=== PATIENT | male | born 1955 | race Caucasian/White ===

== ENCOUNTER 2017-06-03 05:08 | Emergency (ER) | payer OTHER ==
[~2017-06-03] VITALS: Ht 175.3 cm; Wt 93.9 kg
[2017-06-03] MEDS ORDERED: VITAMIN D1000 UNIT PO (05:24)
[2017-06-03] MEDS ORDERED: LISINOPRIL10 M1 PO (05:24)
--- NOTE | 2017-06-03 05:41 | ED SKIN/ALLERGY COMPLAINT ---
History of Present Illness General Chief Complaint: Facial or Head Injury Stated Complaint: FACIAL SWELLING Source: patient, old records Exam Limitations: no limitations Vital Signs & Intake/Output Vital Signs & Intake/Output Vital Signs Date Time Temp Pulse Resp B/P B/P Pulse O2 O2 Flow FiO2 Mean Ox Delivery Rate 06/03 0726 96.6 64 18 127/71 99 Room Air 06/03 0650 97.0 71 18 140/65 99 Room Air 06/03 0525 98 Room Air 06/03 0515 97.5 87 18 177/90 100 Room Air Allergies Coded Allergies: NO KNOWN ALLERGIES (06/25/16) Reconcile Medications Cholecalciferol (Vitamin D3) (Vitamin D) 1,000 UNIT TABLET 1 TAB PO DAILY ( Reported) Lisinopril 10 MG TABLET 1 TAB PO DAILY HTN (Reported) Triage Note: TRIAGE: PATIENT TO ER FROM HOME REPORTING L SIDE FACIAL SWELLING TONIGHT, NOTICED FIRST AT 0300, INCREASED SINCE. DENIES SOB. TAKING LISINOPRIL 10MG DAILY SINCE 2011. PATIENT REPORTS "I'VE HAD THIS ONCE BEFORE WHEN I HAD TOO MUCH SALT SO I DON'T KNOW IF THAT'S IT BECAUSE I HAD PEPPERONI PIZZA LAST NIGHT." Triage Nurses Notes Reviewed? yes Onset: Just prior to arrival Duration: hour(s):, constant, continues in ED Timing: recent history Severity: moderate Location: face Possible Factors: medications Associated Symptoms: change in skin texture, edema, swelling/mass/lumps HPI: In the distant past patient reports an episode of lip swelling thought to be secondary to salty food that resolved on its own. Prior to admission he awoke with recurrent upper and lower lip swelling. Denies fever chills nausea vomiting diarrhea dull pain chest pain shortness breath headache dysuria rash bleeding no medication soaps shampoo detergent. (Aba Urban MD) Past History Travel History Traveled to [place] past 21 day No Medical History Any Pertinent Medical History? 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 No (Aba Urban MD) Review of Systems Review of Systems Constitutional: Reports: no symptoms. EENTM: Reports: see HPI. Respiratory: Reports: no symptoms. Cardiovascular: Reports: no symptoms. GI: Reports: no symptoms. Genitourinary: Reports: no symptoms. Musculoskeletal: Reports: no symptoms. Skin: Reports: no symptoms. Neurological/Psychological: Reports: no symptoms. Hematologic/Endocrine: Reports: no symptoms. Immunologic/Allergic: Reports: no symptoms. All Other Systems: Reviewed and Negative (Rajni TRINIDAD,Aba) Physical Exam Physical Exam General Appearance: well developed/nourished, alert, awake, anxious, mild distress Head: atraumatic, normal appearance Eyes: Bilateral: normal appearance, PERRL, EOMI. Ears, Nose, Throat: normal pharynx, hearing grossly normal, moist mucus membranes, angioedema of lips Neck: normal inspection, supple, full range of motion, no midline tenderness Respiratory: normal breath sounds, chest non-tender, no respiratory distress, quiet respiration, lungs clear Cardiovascular: regular rate/rhythm, normal peripheral pulses, norml femoral pulses equa Peripheral Pulses: 4+ carotid (R), 4+ carotid (L) Gastrointestinal: normal bowel sounds, soft, non-tender, no organomegaly Back: normal inspection, normal range of motion, no vertebral tenderness Extremities: normal inspection, normal capillary refill, normal range of motion, no edema Neurologic/Psych: awake, alert, oriented x 3, normal mood/affect Reflexes: 2+: bicep (R), bicep (L). 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 Angioedema with no apparent airway compromise. 06/03/2017 9:13:58 AM I have reevaluated don. He states he is doing "much better " he feels comfortable returning home. Patient's lips are still swollen but he is having no stridor, airway compromise or difficulty managing secretions. His voice is clear. (Alyssa TRINIDAD,Leonides Heard) Departure Departure Condition: Stable Referrals: Minh Castro MD (PCP/Family) Departure Forms: Customer Survey General Discharge Information (Aba Urban MD) Departure Disposition: HOME OR SELF CARE Clinical Impression Primary Impression: Angioedema of lips Qualifiers: Encounter type: initial encounter Qualified Code: T78.3XXA - Angioneurotic edema, initial encounter Secondary Impressions: Adverse drug reaction Qualifiers: Encounter type: subsequent encounter Qualified Code: T88.7XXD - Unspecified adverse effect of drug or medicament, subsequent encounter Hypertension Qualifiers: Hypertension type: unspecified Qualified Code: I10 - Essential ( primary) hypertension Additional Instructions: Stop Lisinopril. Notify your primary care doctor of this emergency department visit and treatment plan so that a substitute blood pressure medication may be prescribed. Benadryl 50 mg every 6 hours for the next 48 hours. Prednisone as prescribed. Have someone check on you throughout today. Return if any concerns or sudden worsening. Thank you for choosing the [facility] for your care. It was a pleasure to serve you today. Leonides Shah M.D. [facility] Prescriptions: Current Visit Scripts Prednisone (Deltasone) 3 TAB PO DAILY #6 TAB BEGIN TOMORROW (Alyssa TRINIDAD,Leonides Heard)
[2017-06-03] MEDS ORDERED: DELTASONE20 MG PO (09:16)
[2017-06-03 09:28] VITALS: BP 140/72
== END 2017-06-03 09:29 ==
LOC: ERH 05:08
DX: T62.91XA Toxic effect of unspecified noxious substance eaten as food, accidental (unintentional), initial encounter (principal); T78.3XXA Angioneurotic edema, initial encounter; I10 Essential (primary) hypertension
CPT/HCPCS: 96374; 96375; J1200; J2930